=== PATIENT | male | born 1950 | race Caucasian/White ===

== ENCOUNTER 2017-06-27 16:22 | Emergency (ER) | payer OTHER ==
[~2017-06-27] VITALS: Ht 167.6 cm; Wt 72.6 kg
[2017-06-27 16:41] VITALS: BP_SYST 257
[2017-06-27] MEDS ORDERED: hydrALAZINE HCL 20 MG/ML VIAL IVP ONE (17:15)
[2017-06-27 18:43] VITALS: BP_SYST 181
== END 2017-06-27 18:43 | disposition home or self-care (01) ==
LOC: SED 16:22
DX: R00.1 Bradycardia, unspecified (principal); I10 Essential (primary) hypertension; Z90.49 Acquired absence of other specified parts of digestive tract
CPT/HCPCS: 93005; 96374; 99284; J0360

== ENCOUNTER 2021-05-09 10:03 | Emergency (ER) | payer OTHER ==
[~2021-05-09] VITALS: Ht 167.6 cm; Wt 65.8 kg
[2021-05-09 10:32] VITALS: BP_SYST 186
--- NOTE | 2021-05-09 10:39 | NUR ---
Patient to ER bed 8 to gown for evaluation. Side rails up. Report given to Leticia ALBERT.
--- NOTE | 2021-05-09 10:45 | NUR ---
ER at bedside examining patient.
--- NOTE | 2021-05-09 10:50 | NUR ---
Pt. came in with c/o Right foot swelling and mild to moderate pain when walks on hard surfaces. Was running monday and afterwards noticed foot and ankle were bothering him. Denies pain while at rest. Has been icing at home but no improvement so came in for evaluation.
--- NOTE | 2021-05-09 10:58 | NUR ---
radiology at bedside for xray
[2021-05-09 11:03] LABS: BASOPHILS % (AUTO) 0.4 % (0.0-2.0); EOSINOPHILS # (AUTO) 0.1 K/uL (0.0-0.4); EOSINOPHILS % (AUTO) 0.5 % (0.0-4.0); HEMATOCRIT 42.6 % (36-54); HEMOGLOBIN 14.8 g/dL (14.0-18.0); LYMPHOCYTES # (AUTO) 2.2 K/uL (1.0-5.5); LYMPHOCYTES % (AUTO) 20.4 % (20.5-51.5); MEAN CORPUSCULAR HEMOGLOBIN 31 pg (27-31); MEAN CORPUSCULAR HGB CONC 35 % (32-36); MEAN CORPUSCULAR VOLUME 90 fL (79.0-98.0); MONOCYTES # (AUTO) 0.9 K/uL (0.0-1.0); NEUTROPHILS # (AUTO) 7.6 K/uL (1.8-7.7); NEUTROPHILS % (AUTO) 70.7 % (40.0-70.0); PLATELET COUNT (AUTO) 330 K/uL (130-430); RED BLOOD CELL COUNT(AUTO) 4.74 MIL/uL (4.2-6.2); RED CELL DISTRIBUTION WIDTH 13.4 % (9.0-15.0); WHITE BLOOD COUNT (AUTO) 10.7 K/uL (4.8-10.8)
[2021-05-09 11:25] LABS: CALCIUM 8.9 mg/dL (8.4-11.0); CREATININE 1.31 mg/dL (0.55-1.30); POTASSIUM 3.8 mmol/L (3.5-5.1)
[2021-05-09 11:30] LABS: ALBUMIN 3.9 g/dL (3.4-4.8); C-REACTIVE PROTEIN QUANT 3.7 mg/dL (0-0.5); TOTAL BILIRUBIN 0.5 mg/dL (0.0-1.0)
[2021-05-09] MEDS ORDERED: IBUP-1969 PO (12:01)
[2021-05-09] MEDS ORDERED: HYDR-3917 PO (12:01)
[2021-05-09 12:02] LABS: ERYTHROCYTE SEDIMENTATION RATE 23 MM/HR (0-15)
--- NOTE | 2021-05-09 12:10 | NUR ---
Patient given written and verbal discharge instructions and verbalizes understanding. Dr. Mccarthy discussed with patient the results and treatment provided. Patient in stable condition. ID arm band removed. Rx of Motrin and Etlan given. Patient educated on pain management and to follow up with PMD. Pain Scale 0. Opportunity for questions provided and answered. Medication side effect fact sheet provided.
[2021-05-09 12:11] VITALS: BP_SYST 165
== END 2021-05-09 12:10 | disposition home or self-care (01) ==
LOC: SED 10:03
DX: S93.401A Sprain of unspecified ligament of right ankle, initial encounter (principal); I10 Essential (primary) hypertension; X50.9XXA Other and unspecified overexertion or strenuous movements or postures, initial encounter; Y93.89 Activity, other specified; Y92.89 Other specified places as the place of occurrence of the external cause; Y99.8 Other external cause status
CPT/HCPCS: 36415; 80053; 84550; 85025; 85651-TC; 86140; 99284